=== PATIENT | female | born 1970 | race Caucasian/White ===

== ENCOUNTER 2016-08-13 16:31 | Emergency (ER) | payer OTHER ==
--- NOTE | 2016-08-13 16:53 | EDPHY ---
H & P Stated Complaint: left wrist inj sp fall during roller skating HPI/ROS: CHIEF COMPLAINT: Left wrist injury HISTORY OF PRESENT ILLNESS: This is a healthy 46-year-old female who fell onto her outstretched left hand while roller-skating. She denies other injuries but did have a brief loss of consciousness secondary to pain. She said that this has happened to her in the past. She did not fall as a result of this LOC. This point she reports pain in the back of her left wrist. A splint was applied at the skating rink. She was also given 800 mg ibuprofen. She denies numbness or tingling of her fingers. She is right-hand dominant. She has had bilateral carpal tunnel repairs. REVIEW OF SYSTEMS: A ten point review of systems was performed and is negative with the exception of the items mentioned in the HPI. Source: Patient Exam Limitations: No limitations - Personal History LMP (Females 10-55): Over 28 Days Ago - Medical/Surgical History Other PMH: Bilateral carpal tunnel repairs - Social History Alcohol Use: Occasionally Additional Social History: She works for [employer]. She is single. Social alcohol use. No tobacco use. - Physical Exam Exam: General Appearance: Alert. Vital signs reviewed. Head: Normocephalic atraumatic. Eyes: Pupils equal and round, no conjunctival injection, no discharge. Anicteric. ENT, Mouth: No dental injury. Neck: Nontender to palpation over the cervical spine. No pain with active range of motion of her neck. Respiratory: Lungs are clear to auscultation; no wheezes, rales, or rhonchi. Thorax: Nontender. No crepitus. Cardiovascular: Regular rate and rhythm; no murmur, rub, or gallop. Gastrointestinal: Abdomen is soft and nontender, no masses or organomegaly, bowel sounds normal. Skin: Warm and dry, no rashes on exposed skin, normal color. Back: Nontender to palpation over the thoracolumbar spine. Extremities: Swelling on the dorsum of her left hand just distal to the wrist. Pulses: 2+ left radial pulse. Brisk capillary refill on the left. Neurological: Alert and oriented. Moving all four extremities easily and equally. Sensation intact to light touch over her left upper extremity and hand. Able to wiggle fingers of the left hand. Psychiatric: Normal affect. Constitutional: Initial Vital Signs Temperature (C) 36.6 C 08/13/16 16:42 Heart Rate 66 08/13/16 16:42 Respiratory Rate 14 08/13/16 16:42 Blood Pressure 116/81 H 08/13/16 16:42 O2 Sat (%) 99 08/13/16 16:42 O2 Delivery Mode Room Air Allergies/Adverse Reactions: No Known Allergies Allergy (Unverified 08/13/16 16:41) Home Medications: Medication Instructions Recorded Bcp 08/13/16 oxyCODONE/APAP 5/325 [Percocet 1 - 2 tab PO Q4H PRN #10 tab 08/13/16 5/325 (RX)] Medical Decision Making - Diagnostics Imaging Results: Imaging Impressions Wrist X-Ray 08/13/16 16:41 Impression: Intra-articular fracture of the distal left radius with disruption of the articular surface. Procedures: Hematoma block was placed by me. 3 cc of 1% lidocaine was injected at the site of the fracture/hematoma after aspirating blood. She tolerated the procedure well. A sugar-tong ortho glass splint was applied by the emergency department non destructive testing technician. I examined the patient post splint application. She was neurovascularly intact with adequate anatomic alignment. A sling was applied. ED Course/Re-evaluation: X-ray reveals an intra-articular distal radius fracture. There is some foreshortening but little to no angulation. I do not feel that reduction is needed. A hematoma block was introduced. A splint was applied by the emergency department non destructive testing technician. She will follow up with Dr. Wilbur Pena, who has seen her for carpal tunnel surgery. I have advised her to call his office 1st thing Monday morning, day after tomorrow. She will wear the splint until seen by him. Differential Diagnosis: I considered a differential diagnosis that includes but is not limited to fracture (open or closed), dislocation, sprain, strain, and contusion. Departure - Departure Disposition: Home, Routine, Self-Care Clinical Impression: Distal radius fracture, left Qualifiers: Encounter type: initial encounter Fracture type: closed Fracture morphology: other intra-articular Qualified Code(s): S52.572A - Other intraarticular fracture of lower end of left radius, initial encounter for closed fracture Condition: Good Instructions: Wrist Fracture in Adults (ED), Splint Care (ED), DANISH Therapy (ED ) Additional Instructions: Call Dr. Miguel Pena's office 1st thing Monday morning. Let the office staff know that you have an intra-articular distal radius fracture that was splinted in the emergency department. A follow-up appointment will be arranged. Wear your splint until you are seen by Dr. Pena. Remember to elevate your wrist as much as possible. Use the sling for this. You can take tylenol 650 (two regular Tylenol) or 500 mg (1 extra-strength Tylenol) mg every four hours for pain. Do not take more than 3000 mg of Tylenol in a 24 hour time period. Remember that each Percocet has 325 mg of Tylenol in it. Referrals: Kellie Weinstein MD [Primary Care Provider] - As per Instructions Wilbur Pena MD [Medical Doctor] - As per Instructions Prescriptions: oxyCODONE/APAP 5/325 [Percocet 5/325 (RX)] 1 - 2 tab PO Q4H PRN #10 tab PRN Reason: Pain, Severe
[2016-08-13 18:29] VITALS: BP 103/65; PULSE 68; RESP 18; TEMP 97.7; O2SAT 96
== END 2016-08-13 18:26 | disposition home or self-care (01) ==
LOC: CED 16:31
PROC: 3E0T3CZ (ICD-10-PCS; principal; 2016-08-13)
DX: S52.572A Other intraarticular fracture of lower end of left radius, initial encounter for closed fracture (principal); V00.111A Fall from in-line roller-skates, initial encounter; Y99.8 Other external cause status; Y93.51 Activity, roller skating (inline) and skateboarding
CPT/HCPCS: 73110-PO; A4565

== ENCOUNTER → 2017-07-26 | Outpatient (CLI) | payer OTHER | LOC: FIMAGING 14:33 | PROVIDERS: ATTEND Family Medicine | DX: Z12.31 Encounter for screening mammogram for malignant neoplasm of breast (principal) ==